=== PATIENT | female | born 1945 | race Two or more races ===

== ENCOUNTER 2023-01-17 15:16 | Emergency (ER) | payer MEDICARE, BC ==
[~2023-01-17] VITALS: Ht 170.2 cm; Wt 76.1 kg
[2023-01-17 15:20] VITALS: BP 173/66; PULSE 73; RESP 16; TEMP 98; O2SAT 99
[2023-01-17] MEDS ORDERED: acetaminophen 325mg tablet PO ONE (16:35)
== END 2023-01-17 17:03 | disposition home or self-care (01) ==
LOC: ER 15:16
DX: S00.83XA Contusion of other part of head, initial encounter (principal); S80.211A Abrasion, right knee, initial encounter; S60.412A Abrasion of right middle finger, initial encounter; S60.414A Abrasion of right ring finger, initial encounter; W19.XXXA Unspecified fall, initial encounter; Y93.89 Activity, other specified; Y92.89 Other specified places as the place of occurrence of the external cause; Y99.8 Other external cause status
CPT/HCPCS: 70450; 73130; 73564; 99284